=== PATIENT | female | born 1975 | race Caucasian/White ===

== ENCOUNTER → 2024-10-04 | Outpatient (CLI) | payer OTHER ==
[~2024-10-04] MED LIST: Bactrim Ds Tab1 EACH PO; Cleocin HCl150 MG PO
== END | disposition home or self-care (01) ==
LOC: LAB SHORT 11:27 → LAB 11:27
DX: R30.0 Dysuria (principal); R35.0 Frequency of micturition
CPT/HCPCS: 87086